=== PATIENT | male | born 1950 | race Caucasian/White ===

== ENCOUNTER 2023-03-12 16:59 | Inpatient (IN) | payer MEDICARE, BC ==
[~2023-03-12] VITALS: Ht 165.1 cm; Wt 88.0 kg
[2023-03-12] MEDS ORDERED: BLOOD SUGAR DIAGNOSTIC 1 EACH STRIP VI ONE (19:30)
[2023-03-12] MEDS ORDERED: MAG HYDROX/AL HYDROX/SIMETH 30 ML LIQUID UDC PO PRN (19:30)
[2023-03-12] MEDS ORDERED: MAGNESIUM HYDROXIDE 30 ML LIQUID UDC PO PRN (19:30)
[2023-03-12] MEDS ORDERED: ACETAMINOPHEN 325 MG TABLET PO PRN (19:30)
[2023-03-12 19:55] VITALS: BP 141/75; TEMP 97.5; O2SAT 98
[2023-03-12] MEDS: LORAZEPAM 1 MG TABLET PO PRN (20:00)
[2023-03-12] MEDS ORDERED: DONE10TA44 PO (20:06)
[2023-03-12] MEDS ORDERED: TRAZ-182 PO (20:06)
[2023-03-12] MEDS ORDERED: QUET50TA PO (20:06)
[2023-03-12] MEDS ORDERED: SERT25TA PO (20:06)
[2023-03-12] MEDS ORDERED: LAMO100T17 PO (20:06)
[2023-03-12] MEDS: ZOLPIDEM 5 MG TABLET PO PRN (21:25)
[2023-03-13] MEDS: LORAZEPAM 1 MG TABLET PO PRN ×2 (00:51→19:34)
[2023-03-13 07:42] VITALS: BP 127/65; TEMP 98.2; O2SAT 98
[2023-03-13 08:05] LABS: BASOPHILS % (AUTO) 0.6 % (0.0-2.0); EOSINOPHILS % (AUTO) 0.9 % (0.0-7.0); HEMATOCRIT 44.2 % (36.7-47.1); HEMOGLOBIN 14.4 g/dL (12.5-16.3); LYMPHOCYTES # (AUTO) 0.9 K/uL (0.8-4.8); LYMPHOCYTES % (AUTO) 17.4 % (20.5-51.5); MEAN CORPUSCULAR HEMOGLOBIN 29.6 uug (23.8-33.4); MEAN CORPUSCULAR HGB CONC 33 g/dL (32.5-36.3); MEAN CORPUSCULAR VOLUME 90.8 fL (73.0-96.2); MONOCYTES # (AUTO) 0.5 K/uL (0.1-1.30); MONOCYTES % (AUTO) 10.1 % (0.0-11.0); NEUTROPHILS # (AUTO) 3.7 K/uL (1.8-8.9); PLATELET COUNT (AUTO) 243 K/uL (152-348); RED BLOOD CELL COUNT(AUTO) 4.87 MIL/uL (4.06-5.63); RED CELL DISTRIBUTION WIDTH 13.5 % (12.1-16.2); WHITE BLOOD COUNT (AUTO) 5.2 K/uL (3.6-10.2)
[2023-03-13 08:25] LABS: DIFFERENTIAL COMMENT 1
[2023-03-13 08:38] LABS: THYROID STIMULATING HORMONE 1.547 mIU/mL (0.358-3.740)
[2023-03-13 09:12] LABS: ALANINE AMINOTRANSFERASE 24 U/L (16-63); ALBUMIN 3.9 g/dL (3.4-5.0); ALKALINE PHOSPHATASE 59 U/L (50-136); ASPARTATE AMINOTRANSFERASE 17 U/L (15-37); BILIRUBIN,TOTAL 1.3 mg/dL (0.2-1.0); CALCIUM 8.7 mg/dL (8.5-10.1); CARBON DIOXIDE 31 mmol/L (21-32); CHLORIDE 106 mmol/L (98-107); CREATININE 0.8 mg/dL (0.6-1.3); GLUCOSE 99 mg/dL (74-106); GLUCOSE FASTING 99 mg/dL (70-115); MAGNESIUM 2.4 mg/dL (1.8-2.4); PHOSPHOROUS 3.8 mg/dL (2.5-4.9); POTASSIUM 3.9 mmol/L (3.5-5.1); SODIUM SERUM 144 mmol/L (136-145); TOTAL PROTEIN, SERUM 7.1 g/dL (6.4-8.2); UREA NITROGEN, BLOOD 18 mg/dL (7-18)
[2023-03-13] MEDS: DIVALPROEX SPRINKLE 125 MG CAP.SPRINK PO SCH ×2 (09:43→20:20)
[2023-03-13 15:15] VITALS: BP 109/55; TEMP 98; O2SAT 98
[2023-03-13 20:00] VITALS: BP 140/60; TEMP 97.8; O2SAT 100
[2023-03-13] MEDS ORDERED: QUETIAPINE FUMARATE 25 MG TABLET PO SCH (21:00)
[2023-03-13] MEDS: ZOLPIDEM 5 MG TABLET PO PRN (21:46)
[2023-03-13] MEDS ORDERED: OLANZAPINE 10 MG VIAL IM ONE (22:30)
[2023-03-14] MEDS: LORAZEPAM 1 MG TABLET PO PRN ×3 (03:24→21:24)
[2023-03-14 08:00] VITALS: BP 156/74; TEMP 98.8; O2SAT 98
[2023-03-14] MEDS: DIVALPROEX SPRINKLE 125 MG CAP.SPRINK PO SCH ×2 (09:17→09:25)
[2023-03-14] MEDS: QUETIAPINE FUMARATE 25 MG TABLET PO SCH ×3 (09:17→17:33)
[2023-03-14 20:06] VITALS: BP 120/62; TEMP 98.2; O2SAT 98
[2023-03-14] MEDS ORDERED: QUETIAPINE FUMARATE 25 MG TABLET PO SCH (21:00)
[2023-03-14] MEDS: QUETIAPINE FUMARATE 100 MG TABLET PO SCH (21:19)
[2023-03-14] MEDS: ZOLPIDEM 5 MG TABLET PO PRN ×2 (23:33→23:35)
[2023-03-15 08:00] VITALS: BP 144/69; TEMP 97.6; O2SAT 100
[2023-03-15] MEDS: DIVALPROEX SPRINKLE 125 MG CAP.SPRINK PO SCH ×2 (09:17→20:19)
[2023-03-15] MEDS: QUETIAPINE FUMARATE 25 MG TABLET PO SCH (09:18)
[2023-03-15 15:30] VITALS: BP 116/59; TEMP 98.2; O2SAT 99
[2023-03-15 20:04] VITALS: BP 124/72; TEMP 98; O2SAT 99
[2023-03-15] MEDS: QUETIAPINE FUMARATE 100 MG TABLET PO SCH (20:19)
[2023-03-15] MEDS: LORAZEPAM 1 MG TABLET PO PRN (21:54)
[2023-03-16 08:19] VITALS: BP 121/54; TEMP 98.5; O2SAT 98
[2023-03-16] MEDS: DIVALPROEX SPRINKLE 125 MG CAP.SPRINK PO SCH ×2 (08:23→20:38)
[2023-03-16] MEDS: QUETIAPINE FUMARATE 25 MG TABLET PO SCH ×2 (08:23→16:58)
[2023-03-16] MEDS ORDERED: CYANOCOBALAMIN 1000 MCG/ML VIAL IM ONE (12:00)
[2023-03-16 16:08] VITALS: BP 129/66; TEMP 98.1; O2SAT 98
[2023-03-16 20:11] VITALS: BP 113/61; TEMP 98.2; O2SAT 100
[2023-03-16] MEDS: QUETIAPINE FUMARATE 100 MG TABLET PO SCH (20:38)
[2023-03-17 08:07] VITALS: BP 126/54; TEMP 98; O2SAT 98
[2023-03-17] MEDS: QUETIAPINE FUMARATE 25 MG TABLET PO SCH ×2 (08:53→17:06)
[2023-03-17] MEDS: DIVALPROEX SPRINKLE 125 MG CAP.SPRINK PO SCH ×2 (08:53→20:07)
[2023-03-17 16:15] VITALS: BP 112/54; TEMP 98; O2SAT 98
[2023-03-17 19:42] VITALS: BP 130/56; TEMP 98; O2SAT 98
[2023-03-17] MEDS: QUETIAPINE FUMARATE 100 MG TABLET PO SCH (20:07)
[2023-03-17] MEDS: LORAZEPAM 1 MG TABLET PO PRN (23:55)
[2023-03-18 07:39] VITALS: BP 144/61; TEMP 98.1; O2SAT 98
[2023-03-18] MEDS: DIVALPROEX SPRINKLE 125 MG CAP.SPRINK PO SCH ×2 (08:30→21:16)
[2023-03-18] MEDS: QUETIAPINE FUMARATE 25 MG TABLET PO SCH ×3 (08:30→17:00)
[2023-03-18 16:11] VITALS: BP 129/52; TEMP 98; O2SAT 98
[2023-03-18 19:43] VITALS: BP 127/62; TEMP 97.2; O2SAT 97
[2023-03-18] MEDS: QUETIAPINE FUMARATE 100 MG TABLET PO SCH (21:16)
[2023-03-19 07:46] VITALS: BP 132/69; TEMP 98.2; O2SAT 98
[2023-03-19] MEDS: DIVALPROEX SPRINKLE 125 MG CAP.SPRINK PO SCH ×2 (08:53→20:30)
[2023-03-19] MEDS: QUETIAPINE FUMARATE 25 MG TABLET PO SCH ×3 (08:54→17:02)
[2023-03-19 15:25] VITALS: BP 130/68; TEMP 98.2; O2SAT 98
[2023-03-19 19:49] VITALS: BP 136/64; TEMP 98.2; O2SAT 98
[2023-03-19] MEDS: QUETIAPINE FUMARATE 100 MG TABLET PO SCH (20:30)
[2023-03-19] MEDS: LORAZEPAM 1 MG TABLET PO PRN (21:41)
[2023-03-19] MEDS: ZOLPIDEM 5 MG TABLET PO PRN (23:26)
[2023-03-20 07:36] VITALS: BP 113/62; TEMP 98.4; O2SAT 99
[2023-03-20] MEDS: DIVALPROEX SPRINKLE 125 MG CAP.SPRINK PO SCH ×2 (08:54→20:57)
[2023-03-20] MEDS: QUETIAPINE FUMARATE 25 MG TABLET PO SCH ×3 (08:54→17:06)
[2023-03-20 15:02] VITALS: BP 108/60; TEMP 98.6; O2SAT 99
[2023-03-20 19:38] VITALS: BP 116/64; TEMP 98.4; O2SAT 98
[2023-03-20] MEDS ORDERED: QUETIAPINE FUMARATE 100 MG TABLET PO SCH (21:00)
[2023-03-20] MEDS: MELATONIN 3 MG TABLET PO SCH (21:00)
[2023-03-20] MEDS: LORAZEPAM 1 MG TABLET PO PRN (22:07)
[2023-03-21] MEDS: ZOLPIDEM 5 MG TABLET PO PRN ×2 (01:32→23:50)
[2023-03-21 07:56] VITALS: BP 120/70; TEMP 98; O2SAT 99
[2023-03-21] MEDS: risperiDONE 1 MG TABLET PO SCH ×3 (09:29→17:07)
[2023-03-21] MEDS: DIVALPROEX SPRINKLE 125 MG CAP.SPRINK PO SCH ×2 (09:30→20:32)
[2023-03-21] MEDS ORDERED: OLANZAPINE 10 MG VIAL IM ONE (10:00)
[2023-03-21 15:02] VITALS: BP 129/53; TEMP 98; O2SAT 100
[2023-03-21 19:58] VITALS: BP 118/56; TEMP 98.2; O2SAT 99
[2023-03-21] MEDS: MELATONIN 3 MG TABLET PO SCH (20:32)
[2023-03-21] MEDS ORDERED: TRAZODONE 50 MG TABLET PO SCH (21:00)
[2023-03-21] MEDS: LORAZEPAM 1 MG TABLET PO PRN (22:39)
[2023-03-22] MEDS: LORAZEPAM 1 MG TABLET PO PRN ×3 (02:44→23:10)
[2023-03-22 07:58] VITALS: BP 144/67; TEMP 98; O2SAT 98
[2023-03-22] MEDS ORDERED: risperiDONE 1 MG TABLET PO SCH (09:00)
[2023-03-22] MEDS: risperiDONE 2 MG TABLET PO SCH ×3 (09:09→16:25)
[2023-03-22] MEDS: DIVALPROEX SPRINKLE 125 MG CAP.SPRINK PO SCH ×2 (09:09→20:18)
[2023-03-22 15:17] VITALS: BP 119/77; TEMP 98.2; O2SAT 98
[2023-03-22 19:48] VITALS: BP 150/79; TEMP 98; O2SAT 96
[2023-03-22] MEDS: MELATONIN 3 MG TABLET PO SCH (20:18)
[2023-03-22] MEDS: TRAZODONE 100 MG TABLET PO SCH (20:18)
[2023-03-22] MEDS ORDERED: TRAZODONE 50 MG TABLET PO SCH (21:00)
[2023-03-22] MEDS: ZOLPIDEM 5 MG TABLET PO PRN (21:34)
[2023-03-23] MEDS: risperiDONE 2 MG TABLET PO SCH ×3 (08:41→16:04)
[2023-03-23] MEDS: DIVALPROEX SPRINKLE 125 MG CAP.SPRINK PO SCH ×2 (08:41→20:24)
[2023-03-23 20:00] VITALS: BP 114/63; TEMP 97; O2SAT 100
[2023-03-23] MEDS: TRAZODONE 100 MG TABLET PO SCH (20:22)
[2023-03-23] MEDS: MELATONIN 3 MG TABLET PO SCH (20:23)
[2023-03-23] MEDS: ZOLPIDEM 5 MG TABLET PO PRN (21:37)
[2023-03-24] MEDS: DIVALPROEX SPRINKLE 125 MG CAP.SPRINK PO SCH ×2 (08:37→20:43)
[2023-03-24] MEDS: risperiDONE 2 MG TABLET PO SCH ×3 (08:37→17:17)
[2023-03-24 16:15] VITALS: BP 122/68; TEMP 98.2; O2SAT 98
[2023-03-24 19:48] VITALS: BP 126/60; TEMP 98.1; O2SAT 98
[2023-03-24] MEDS: MELATONIN 3 MG TABLET PO SCH (20:43)
[2023-03-24] MEDS: TRAZODONE 100 MG TABLET PO SCH (20:43)
[2023-03-24] MEDS: ZOLPIDEM 5 MG TABLET PO PRN (23:57)
[2023-03-25] MEDS: LORAZEPAM 1 MG TABLET PO PRN (02:00)
[2023-03-25] MEDS ORDERED: TEMAZEPAM 15 MG CAPSULE PO PRN (08:00)
[2023-03-25] MEDS: risperiDONE 2 MG TABLET PO SCH ×3 (08:38→16:38)
[2023-03-25] MEDS: DIVALPROEX SPRINKLE 125 MG CAP.SPRINK PO SCH ×2 (08:38→20:49)
[2023-03-25] MEDS: LITHIUM CARBONATE 300 MG CAPSULE PO SCH ×2 (09:21→20:49)
[2023-03-25 16:03] VITALS: BP 131/67; TEMP 98.1; O2SAT 99
[2023-03-25 19:39] VITALS: BP 128/68; TEMP 98.2; O2SAT 96
[2023-03-25] MEDS: TRAZODONE 100 MG TABLET PO SCH (20:49)
[2023-03-25] MEDS: MELATONIN 3 MG TABLET PO SCH (20:50)
[2023-03-26 08:01] VITALS: BP 129/59; TEMP 97.8; O2SAT 98
[2023-03-26] MEDS: risperiDONE 2 MG TABLET PO SCH ×3 (09:00→17:51)
[2023-03-26] MEDS: DIVALPROEX SPRINKLE 125 MG CAP.SPRINK PO SCH ×2 (09:00→20:36)
[2023-03-26] MEDS: LITHIUM CARBONATE 300 MG CAPSULE PO SCH ×2 (09:00→20:36)
[2023-03-26 15:19] VITALS: BP 97/57; TEMP 98; O2SAT 99
[2023-03-26 20:10] VITALS: BP 119/61; TEMP 98.1; O2SAT 100
[2023-03-26] MEDS: TRAZODONE 100 MG TABLET PO SCH (20:36)
[2023-03-26] MEDS: MELATONIN 3 MG TABLET PO SCH (20:44)
[2023-03-27] MEDS: LORAZEPAM 1 MG TABLET PO PRN ×2 (01:41→11:37)
[2023-03-27 07:30] VITALS: BP 118/42; TEMP 97.6; O2SAT 97
[2023-03-27] MEDS: LITHIUM CARBONATE 300 MG CAPSULE PO SCH ×2 (09:10→20:57)
[2023-03-27] MEDS: risperiDONE 2 MG TABLET PO SCH ×3 (09:10→16:38)
[2023-03-27] MEDS: DIVALPROEX SPRINKLE 125 MG CAP.SPRINK PO SCH ×2 (09:10→20:57)
[2023-03-27 15:44] VITALS: BP 130/66; TEMP 97.3; O2SAT 100
[2023-03-27] MEDS: MELATONIN 3 MG TABLET PO SCH (20:58)
[2023-03-27] MEDS ORDERED: TRAZODONE 100 MG TABLET PO SCH (21:00)
[2023-03-27 22:10] VITALS: BP 139/52; TEMP 98
[2023-03-28 08:02] VITALS: BP 120/62; TEMP 98.2; O2SAT 98
[2023-03-28] MEDS: LITHIUM CARBONATE 300 MG CAPSULE PO SCH (08:59)
[2023-03-28] MEDS: risperiDONE 2 MG TABLET PO SCH (08:59)
[2023-03-28] MEDS: DIVALPROEX SPRINKLE 125 MG CAP.SPRINK PO SCH (08:59)
[2023-03-28] MEDS ORDERED: CYANOCOBALAMIN 1000 MCG/ML VIAL IM SCH (09:00)
== END 2023-03-28 11:30 | DRG 885 ==
LOC: TRANSITION 16:59 → GPS 18:40
PROVIDERS: ADMIT Psychiatry & Neurology Psychiatry; ATTEND Nurse Practitioner Acute Care
DX: F29 Unspecified psychosis not due to a substance or known physiological condition (principal); G93.41 Metabolic encephalopathy; F02.818 Dementia in other diseases classified elsewhere, unspecified severity, with other behavioral disturbance; G30.9 Alzheimer's disease, unspecified; E66.9 Obesity, unspecified; Z68.32 Body mass index [BMI] 32.0-32.9, adult; Z20.822 Contact with and (suspected) exposure to COVID-19; Z73.6 Limitation of activities due to disability; Z79.899 Other long term (current) drug therapy
CPT/HCPCS: 36415; 71045; 80164; 83735; 84100; 84443; 85025; J2358; J3420

== ENCOUNTER 2023-06-03 18:20 | Inpatient (IN) | payer MEDICARE, BC ==
[~2023-06-03] VITALS: Ht 185.4 cm; Wt 72.6 kg
[~2023-06-03 18:20] MED LIST: DONE10TA44 PO
[2023-06-03] MEDS ORDERED: RISP0.5T5 PO (18:37)
[2023-06-03] MEDS ORDERED: DIVA125C5 PO (18:37)
[2023-06-03] MEDS ORDERED: LITH300C2 PO (18:37)
[2023-06-03 19:13] LABS: BASOPHILS # (AUTO) 0.1 K/UL (0.0-0.2); BASOPHILS % (AUTO) 2.1 % (0.0-2.0); EOSINOPHILS # (AUTO) 0.1 K/uL (0.0-0.7); EOSINOPHILS % (AUTO) 1.2 % (0.0-7.0); HEMATOCRIT 42.2 % (36.7-47.1); HEMOGLOBIN 14.1 g/dL (12.5-16.3); LYMPHOCYTES # (AUTO) 1.1 K/uL (0.8-4.8); LYMPHOCYTES % (AUTO) 18.9 % (20.5-51.5); MEAN CORPUSCULAR HGB CONC 34 g/dL (32.5-36.3); MEAN CORPUSCULAR VOLUME 92.4 fL (73.0-96.2); MONOCYTES # (AUTO) 0.6 K/uL (0.1-1.30); MONOCYTES % (AUTO) 9.9 % (0.0-11.0); NEUTROPHILS # (AUTO) 3.8 K/uL (1.8-8.9); NEUTROPHILS % (AUTO) 67.9 % (38.5-71.5); PLATELET COUNT (AUTO) 191 K/uL (152-348); RED BLOOD CELL COUNT(AUTO) 4.56 MIL/uL (4.06-5.63); RED CELL DISTRIBUTION WIDTH 14.4 % (12.1-16.2); WHITE BLOOD COUNT (AUTO) 5.6 K/uL (3.6-10.2)
[2023-06-03 19:17] LABS: DIFFERENTIAL COMMENT 1
[2023-06-03 19:19] LABS: CALCIUM 9.3 mg/dL (8.5-10.1); CREATININE 0.9 mg/dL (0.6-1.3); POTASSIUM 3.3 mmol/L (3.5-5.1)
[2023-06-03] MEDS ORDERED: HALOPERIDOL LACTATE 5 MG/1 ML VIAL ONE (19:20)
[2023-06-03 19:24] LABS: ALBUMIN 3.8 g/dL (3.4-5.0); BILIRUBIN,DIRECT 0.3 mg/dL (0.0-0.2); BILIRUBIN,TOTAL 1.4 mg/dL (0.2-1.0); TOTAL PROTEIN, SERUM 7.2 g/dL (6.4-8.2)
[2023-06-03] MEDS ORDERED: HALOPERIDOL LACTATE 5 MG/1 ML VIAL IM ONE (19:30)
[2023-06-03] MEDS ORDERED: LORAZEPAM 2 MG/1 ML VIAL IV ONE (20:00)
[2023-06-03] MEDS ORDERED: LORAZEPAM 2 MG/1 ML VIAL ONE (20:23)
[2023-06-04] MEDS ORDERED: MAG HYDROX/AL HYDROX/SIMETH 30 ML LIQUID UDC PO PRN (01:30)
[2023-06-04] MEDS ORDERED: MAGNESIUM HYDROXIDE 30 ML LIQUID UDC PO PRN (01:30)
[2023-06-04] MEDS ORDERED: BLOOD SUGAR DIAGNOSTIC 1 EACH STRIP VI ONE (01:30)
[2023-06-04 02:17] VITALS: BP 128/52; TEMP 98.1; O2SAT 98
[2023-06-04] MEDS: LORAZEPAM 1 MG TABLET PO PRN ×2 (08:38→18:24)
[2023-06-04] MEDS ORDERED: DIVALPROEX ER 250 MG TAB.SR.24H PO SCH (09:00)
[2023-06-04] MEDS: risperiDONE 0.5 MG TABLET PO SCH ×3 (09:17→16:33)
[2023-06-04] MEDS: LITHIUM CARBONATE 150 MG CAPSULE PO SCH ×2 (09:17→16:33)
[2023-06-04 09:40] VITALS: BP 122/52; TEMP 98; O2SAT 98
[2023-06-04 15:32] VITALS: BP 113/72; TEMP 98; O2SAT 98
[2023-06-04 19:40] VITALS: BP 105/72; TEMP 98.2; O2SAT 95
[2023-06-04] MEDS: MELATONIN 3 MG TABLET PO SCH (20:47)
[2023-06-04] MEDS ORDERED: DIVALPROEX ER 500 MG TAB.SR.24H PO SCH (21:00)
[2023-06-05 07:45] VITALS: BP 159/69; TEMP 98.2; O2SAT 98
[2023-06-05 07:45] LABS: BASOPHILS % (AUTO) 0.6 % (0.0-2.0); EOSINOPHILS # (AUTO) 0.1 K/uL (0.0-0.7); HEMATOCRIT 44.2 % (36.7-47.1); HEMOGLOBIN 14.7 g/dL (12.5-16.3); LYMPHOCYTES % (AUTO) 17.6 % (20.5-51.5); MEAN CORPUSCULAR HEMOGLOBIN 31.1 uug (23.8-33.4); MEAN CORPUSCULAR HGB CONC 33 g/dL (32.5-36.3); MONOCYTES # (AUTO) 0.5 K/uL (0.1-1.30); MONOCYTES % (AUTO) 9.4 % (0.0-11.0); NEUTROPHILS # (AUTO) 3.9 K/uL (1.8-8.9); NEUTROPHILS % (AUTO) 70.4 % (38.5-71.5); PLATELET COUNT (AUTO) 182 K/uL (152-348); RED BLOOD CELL COUNT(AUTO) 4.75 MIL/uL (4.06-5.63); RED CELL DISTRIBUTION WIDTH 14.3 % (12.1-16.2); WHITE BLOOD COUNT (AUTO) 5.5 K/uL (3.6-10.2)
[2023-06-05 07:46] LABS: DIFFERENTIAL COMMENT 1
[2023-06-05 08:23] LABS: THYROID STIMULATING HORMONE 2.856 mIU/mL (0.358-3.740)
[2023-06-05 08:34] LABS: ALBUMIN 3.5 g/dL (3.4-5.0); BILIRUBIN,TOTAL 1.4 mg/dL (0.2-1.0); CALCIUM 9.3 mg/dL (8.5-10.1); MAGNESIUM 2.8 mg/dL (1.8-2.4); PHOSPHOROUS 4.4 mg/dL (2.5-4.9); TOTAL PROTEIN, SERUM 6.7 g/dL (6.4-8.2)
[2023-06-05] MEDS: DIVALPROEX SPRINKLE 125 MG CAP.SPRINK PO SCH ×2 (09:06→20:40)
[2023-06-05] MEDS: risperiDONE 0.5 MG TABLET PO SCH ×3 (09:06→16:47)
[2023-06-05] MEDS: LITHIUM CARBONATE 150 MG CAPSULE PO SCH ×2 (09:06→16:47)
[2023-06-05] MEDS: LORAZEPAM 1 MG TABLET PO PRN ×2 (10:42→19:43)
[2023-06-05 15:24] VITALS: BP 99/53; TEMP 98; O2SAT 98
[2023-06-05 20:00] VITALS: BP 124/87; TEMP 98.5; O2SAT 99
[2023-06-05] MEDS: MELATONIN 3 MG TABLET PO SCH (20:40)
[2023-06-06] MEDS: LORAZEPAM 1 MG TABLET PO PRN ×2 (07:58→18:04)
[2023-06-06 08:00] VITALS: BP 121/56; TEMP 97.6; O2SAT 97
[2023-06-06 08:05] VITALS: BP 121/56; TEMP 97.6; O2SAT 97
[2023-06-06] MEDS: LITHIUM CARBONATE 150 MG CAPSULE PO SCH ×2 (08:50→16:50)
[2023-06-06] MEDS: DIVALPROEX SPRINKLE 125 MG CAP.SPRINK PO SCH ×2 (08:50→20:21)
[2023-06-06] MEDS: risperiDONE 0.5 MG TABLET PO SCH ×3 (08:50→16:50)
[2023-06-06] MEDS ORDERED: OLANZAPINE 10 MG VIAL IM ONE (09:30)
[2023-06-06 15:57] VITALS: BP 108/69; TEMP 97.2; O2SAT 97
[2023-06-06] MEDS: ENSURE ENLIVE (VAN) 240 ML LIQUID PO SCH (17:38)
[2023-06-06 19:56] VITALS: BP 117/75; TEMP 97.8; O2SAT 100
[2023-06-06] MEDS: MELATONIN 3 MG TABLET PO SCH (20:21)
[2023-06-06] MEDS: REMEDY ESSENTIAL ZINC PASTE 113 GM TOP SCH (20:22)
[2023-06-06] MEDS: ZOLPIDEM 5 MG TABLET PO PRN (22:37)
[2023-06-07 08:03] VITALS: BP 136/69; TEMP 98.2; O2SAT 98
[2023-06-07] MEDS ORDERED: ENSURE ENLIVE (VAN) 240 ML LIQUID PO SCH (09:00)
[2023-06-07] MEDS: risperiDONE 0.5 MG TABLET PO SCH ×3 (09:30→17:01)
[2023-06-07] MEDS: LORAZEPAM 1 MG TABLET PO PRN ×2 (09:50→18:42)
[2023-06-07] MEDS: ACETAMINOPHEN 325 MG TABLET PO PRN (13:18)
[2023-06-07] MEDS: REMEDY ESSENTIAL ZINC PASTE 113 GM TOP SCH ×2 (13:19→21:03)
[2023-06-07] MEDS: ENSURE ENLIVE (VAN) 240 ML LIQUID PO SCH ×2 (13:20→17:02)
[2023-06-07 16:20] VITALS: BP 139/76; TEMP 98.2; O2SAT 98
[2023-06-07] MEDS: LITHIUM CARBONATE 150 MG CAPSULE PO SCH (17:01)
[2023-06-07] MEDS: DIVALPROEX SPRINKLE 125 MG CAP.SPRINK PO SCH (20:56)
[2023-06-07] MEDS: MELATONIN 3 MG TABLET PO SCH (20:57)
[2023-06-07] MEDS: ZOLPIDEM 5 MG TABLET PO PRN (23:25)
[2023-06-08] MEDS: LORAZEPAM 1 MG TABLET PO PRN ×3 (06:04→19:59)
[2023-06-08 08:14] VITALS: BP 113/57; TEMP 98.3; O2SAT 99
[2023-06-08] MEDS: DIVALPROEX SPRINKLE 125 MG CAP.SPRINK PO SCH ×2 (08:28→20:00)
[2023-06-08] MEDS: REMEDY ESSENTIAL ZINC PASTE 113 GM TOP SCH ×2 (08:28→21:08)
[2023-06-08] MEDS: ENSURE ENLIVE (VAN) 240 ML LIQUID PO SCH ×2 (08:29→18:07)
[2023-06-08] MEDS: risperiDONE 0.5 MG TABLET PO SCH ×3 (08:29→18:07)
[2023-06-08] MEDS: LITHIUM CARBONATE 150 MG CAPSULE PO SCH ×2 (08:29→18:07)
[2023-06-08 16:17] VITALS: BP 116/99; TEMP 98; O2SAT 97
[2023-06-08 20:42] VITALS: BP 138/70; TEMP 98.2; O2SAT 96
[2023-06-08] MEDS: MELATONIN 3 MG TABLET PO SCH (21:07)
[2023-06-09] MEDS: ZOLPIDEM 5 MG TABLET PO PRN (00:34)
[2023-06-09] MEDS: LORAZEPAM 1 MG TABLET PO PRN (03:15)
[2023-06-09] MEDS: LITHIUM CARBONATE 150 MG CAPSULE PO SCH ×2 (08:41→17:04)
[2023-06-09] MEDS: ASPIRIN 81 MG TAB.CHEW PO SCH (08:41)
[2023-06-09] MEDS: risperiDONE 0.5 MG TABLET PO SCH ×3 (08:42→17:04)
[2023-06-09] MEDS: DIVALPROEX SPRINKLE 125 MG CAP.SPRINK PO SCH ×2 (08:42→20:29)
[2023-06-09] MEDS: REMEDY ESSENTIAL ZINC PASTE 113 GM TOP SCH ×2 (08:43→20:30)
[2023-06-09] MEDS: ENSURE ENLIVE (VAN) 240 ML LIQUID PO SCH ×2 (08:44→17:05)
[2023-06-09 08:51] VITALS: BP 126/61; TEMP 98; O2SAT 96
[2023-06-09 16:25] VITALS: BP 135/78; TEMP 98; O2SAT 97
[2023-06-09] MEDS: MELATONIN 3 MG TABLET PO SCH (20:30)
[2023-06-09 20:34] VITALS: BP 131/71; TEMP 98; O2SAT 98
[2023-06-10] MEDS: LORAZEPAM 1 MG TABLET PO PRN ×3 (05:11→19:52)
[2023-06-10] MEDS: ASPIRIN 81 MG TAB.CHEW PO SCH (08:37)
[2023-06-10] MEDS: LITHIUM CARBONATE 150 MG CAPSULE PO SCH ×2 (08:38→17:02)
[2023-06-10] MEDS: ENSURE ENLIVE (VAN) 240 ML LIQUID PO SCH ×2 (08:39→17:03)
[2023-06-10] MEDS: DIVALPROEX SPRINKLE 125 MG CAP.SPRINK PO SCH ×2 (08:39→21:01)
[2023-06-10 08:42] VITALS: BP 110/83; TEMP 98; O2SAT 97
[2023-06-10] MEDS: REMEDY ESSENTIAL ZINC PASTE 113 GM TOP SCH ×2 (08:48→20:38)
[2023-06-10] MEDS: risperiDONE 1 MG TABLET PO SCH ×2 (08:50→17:02)
[2023-06-10] MEDS ORDERED: risperiDONE 0.5 MG TABLET PO SCH (09:00)
[2023-06-10 16:23] VITALS: BP 123/83; TEMP 97.9; O2SAT 97
[2023-06-10 20:00] VITALS: BP 109/77; TEMP 98.1; O2SAT 98
[2023-06-10] MEDS: MELATONIN 3 MG TABLET PO SCH (21:39)
[2023-06-11 07:30] VITALS: BP 142/80; TEMP 98; O2SAT 99
[2023-06-11] MEDS: ASPIRIN 81 MG TAB.CHEW PO SCH (08:04)
[2023-06-11] MEDS: ENSURE ENLIVE (VAN) 240 ML LIQUID PO SCH ×2 (08:05→13:30)
[2023-06-11] MEDS: risperiDONE 1 MG TABLET PO SCH ×2 (08:05→16:06)
[2023-06-11] MEDS: LORAZEPAM 1 MG TABLET PO PRN ×3 (08:05→19:53)
[2023-06-11] MEDS: LITHIUM CARBONATE 150 MG CAPSULE PO SCH ×2 (08:05→16:06)
[2023-06-11] MEDS: DIVALPROEX SPRINKLE 125 MG CAP.SPRINK PO SCH ×2 (08:05→19:53)
[2023-06-11] MEDS: REMEDY ESSENTIAL ZINC PASTE 113 GM TOP SCH ×2 (08:06→21:41)
[2023-06-11 15:31] VITALS: BP 159/84; TEMP 98; O2SAT 99
[2023-06-11 20:00] VITALS: BP 132/72; TEMP 98; O2SAT 100
[2023-06-11] MEDS: MELATONIN 3 MG TABLET PO SCH (21:39)
[2023-06-11] MEDS: ZOLPIDEM 5 MG TABLET PO PRN (21:40)
[2023-06-12 08:15] VITALS: BP 100/73; TEMP 98; O2SAT 96
[2023-06-12] MEDS: ASPIRIN 81 MG TAB.CHEW PO SCH (08:37)
[2023-06-12] MEDS: LITHIUM CARBONATE 150 MG CAPSULE PO SCH ×2 (08:37→17:16)
[2023-06-12] MEDS: DIVALPROEX SPRINKLE 125 MG CAP.SPRINK PO SCH ×2 (08:37→19:53)
[2023-06-12] MEDS: risperiDONE 1 MG TABLET PO SCH ×2 (08:37→17:15)
[2023-06-12] MEDS: REMEDY ESSENTIAL ZINC PASTE 113 GM TOP SCH ×2 (08:38→20:11)
[2023-06-12] MEDS: ENSURE ENLIVE (VAN) 240 ML LIQUID PO SCH (08:38)
[2023-06-12] MEDS: LORAZEPAM 1 MG TABLET PO PRN ×2 (12:36→19:52)
[2023-06-12 15:44] VITALS: BP 156/75; TEMP 98; O2SAT 96
[2023-06-12 20:05] VITALS: BP 140/74; TEMP 98.2; O2SAT 99
[2023-06-12] MEDS: MELATONIN 3 MG TABLET PO SCH (21:44)
[2023-06-12] MEDS: ZOLPIDEM 5 MG TABLET PO PRN (22:36)
[2023-06-13] MEDS: LORAZEPAM 1 MG TABLET PO PRN ×3 (03:57→20:22)
[2023-06-13 07:59] VITALS: BP 133/66; TEMP 97.2; O2SAT 97
[2023-06-13 08:01] VITALS: BP 100/41; TEMP 97.6; O2SAT 97
[2023-06-13] MEDS: risperiDONE 1 MG TABLET PO SCH ×2 (11:53→17:17)
[2023-06-13] MEDS: ASPIRIN 81 MG TAB.CHEW PO SCH (11:53)
[2023-06-13] MEDS: DIVALPROEX SPRINKLE 125 MG CAP.SPRINK PO SCH ×2 (11:54→20:23)
[2023-06-13] MEDS: LITHIUM CARBONATE 150 MG CAPSULE PO SCH ×2 (11:54→17:17)
[2023-06-13] MEDS: ENSURE ENLIVE (VAN) 240 ML LIQUID PO SCH (11:55)
[2023-06-13] MEDS: REMEDY ESSENTIAL ZINC PASTE 113 GM TOP SCH ×2 (11:55→20:24)
[2023-06-13] MEDS ORDERED: OLANZAPINE 10 MG VIAL IM ONE (15:00)
[2023-06-13 15:15] VITALS: BP 111/51; TEMP 97.9; O2SAT 97
[2023-06-13 15:45] VITALS: BP 113/65; TEMP 97.8; O2SAT 97
[2023-06-13 20:00] VITALS: BP 134/87; TEMP 98; O2SAT 95
[2023-06-13] MEDS: MELATONIN 3 MG TABLET PO SCH (20:23)
[2023-06-14] MEDS: ACETAMINOPHEN 325 MG TABLET PO PRN (06:13)
[2023-06-14] MEDS: LORAZEPAM 1 MG TABLET PO PRN ×2 (06:13→15:40)
[2023-06-14 07:58] VITALS: BP 124/72; TEMP 98.4; O2SAT 98
[2023-06-14] MEDS: LITHIUM CARBONATE 150 MG CAPSULE PO SCH ×3 (09:06→17:26)
[2023-06-14] MEDS: risperiDONE 1 MG TABLET PO SCH ×3 (09:06→17:26)
[2023-06-14] MEDS: ASPIRIN 81 MG TAB.CHEW PO SCH (09:06)
[2023-06-14] MEDS: REMEDY ESSENTIAL ZINC PASTE 113 GM TOP SCH ×2 (09:07→20:40)
[2023-06-14] MEDS: ENSURE ENLIVE (VAN) 240 ML LIQUID PO SCH (09:07)
[2023-06-14] MEDS: DIVALPROEX SPRINKLE 125 MG CAP.SPRINK PO SCH ×2 (09:07→20:37)
[2023-06-14 15:17] VITALS: BP 136/76; TEMP 98; O2SAT 98
[2023-06-14 19:58] VITALS: BP 141/78; TEMP 98; O2SAT 98
[2023-06-14] MEDS: MELATONIN 3 MG TABLET PO SCH (20:36)
[2023-06-15] MEDS: LORAZEPAM 1 MG TABLET PO PRN ×2 (07:12→14:52)
[2023-06-15] MEDS: LITHIUM CARBONATE 150 MG CAPSULE PO SCH ×3 (08:14→17:38)
[2023-06-15] MEDS: DIVALPROEX SPRINKLE 125 MG CAP.SPRINK PO SCH ×2 (08:14→21:41)
[2023-06-15] MEDS: risperiDONE 1 MG TABLET PO SCH ×3 (08:14→17:38)
[2023-06-15] MEDS: ASPIRIN 81 MG TAB.CHEW PO SCH (08:14)
[2023-06-15] MEDS: ENSURE ENLIVE (VAN) 240 ML LIQUID PO SCH (08:15)
[2023-06-15 08:19] VITALS: BP_SYST 101; BP_DIAS 5; BP_DIAS 58; TEMP 97.6; O2SAT 97
[2023-06-15] MEDS: REMEDY ESSENTIAL ZINC PASTE 113 GM TOP SCH ×2 (08:21→21:42)
[2023-06-15 16:06] VITALS: BP 153/73; TEMP 97.6
[2023-06-15 20:09] VITALS: BP 134/63; TEMP 98; O2SAT 96
[2023-06-15] MEDS: MELATONIN 3 MG TABLET PO SCH (21:41)
[2023-06-16] MEDS: ZOLPIDEM 5 MG TABLET PO PRN (01:12)
[2023-06-16] MEDS: LORAZEPAM 1 MG TABLET PO PRN (05:03)
[2023-06-16 07:42] VITALS: BP 105/60; TEMP 97.9; O2SAT 96
[2023-06-16] MEDS: ASPIRIN 81 MG TAB.CHEW PO SCH (08:45)
[2023-06-16] MEDS: LITHIUM CARBONATE 150 MG CAPSULE PO SCH ×3 (08:45→17:08)
[2023-06-16] MEDS: risperiDONE 1 MG TABLET PO SCH ×3 (08:45→17:08)
[2023-06-16] MEDS: ENSURE ENLIVE (VAN) 240 ML LIQUID PO SCH (08:46)
[2023-06-16] MEDS: DIVALPROEX SPRINKLE 125 MG CAP.SPRINK PO SCH ×2 (08:46→21:05)
[2023-06-16] MEDS: REMEDY ESSENTIAL ZINC PASTE 113 GM TOP SCH ×2 (08:47→21:05)
[2023-06-16 16:49] VITALS: BP 141/80; TEMP 97.9; O2SAT 96
[2023-06-16 20:15] VITALS: BP 156/84; TEMP 98; O2SAT 99
[2023-06-16] MEDS: TRAZODONE 50 MG TABLET PO SCH (21:05)
[2023-06-17] MEDS: LORAZEPAM 1 MG TABLET PO PRN ×2 (03:45→20:42)
[2023-06-17 07:55] VITALS: BP 120/53; TEMP 98; O2SAT 96
[2023-06-17] MEDS: LITHIUM CARBONATE 150 MG CAPSULE PO SCH ×3 (08:35→17:18)
[2023-06-17] MEDS: ASPIRIN 81 MG TAB.CHEW PO SCH (08:35)
[2023-06-17] MEDS: risperiDONE 1 MG TABLET PO SCH ×3 (08:35→17:18)
[2023-06-17] MEDS: DIVALPROEX SPRINKLE 125 MG CAP.SPRINK PO SCH ×2 (08:36→20:41)
[2023-06-17] MEDS: ENSURE ENLIVE (VAN) 240 ML LIQUID PO SCH (08:36)
[2023-06-17] MEDS: REMEDY ESSENTIAL ZINC PASTE 113 GM TOP SCH ×2 (08:37→20:43)
[2023-06-17 16:03] VITALS: BP 150/81; TEMP 98; O2SAT 96
[2023-06-17 19:51] VITALS: BP 148/68; TEMP 97.9; O2SAT 96
[2023-06-17] MEDS: TRAZODONE 50 MG TABLET PO SCH (20:42)
[2023-06-18] MEDS: LORAZEPAM 1 MG TABLET PO PRN (06:41)
[2023-06-18] MEDS: ASPIRIN 81 MG TAB.CHEW PO SCH (08:26)
[2023-06-18] MEDS: DIVALPROEX SPRINKLE 125 MG CAP.SPRINK PO SCH (08:26)
[2023-06-18] MEDS: LITHIUM CARBONATE 150 MG CAPSULE PO SCH ×2 (08:27→12:02)
[2023-06-18] MEDS: REMEDY ESSENTIAL ZINC PASTE 113 GM TOP SCH (08:27)
[2023-06-18] MEDS: ENSURE ENLIVE (VAN) 240 ML LIQUID PO SCH (08:27)
[2023-06-18] MEDS: risperiDONE 1 MG TABLET PO SCH ×2 (08:27→12:02)
[2023-06-18 08:29] VITALS: BP 141/61; TEMP 98.2; O2SAT 98
[2023-06-18] MEDS ORDERED: METOPROLOL TARTRATE 25 MG TABLET PO SCH (09:15)
[2023-06-18 09:36] VITALS: BP 141/61
== END 2023-06-18 12:30 | DRG 885 ==
LOC: ER 18:28 → GPS 23:05
PROVIDERS: ADMIT Psychiatry & Neurology Psychiatry; ATTEND Internal Medicine
DX: F29 Unspecified psychosis not due to a substance or known physiological condition (principal); D68.59 Other primary thrombophilia; R17 Unspecified jaundice; F02.811 Dementia in other diseases classified elsewhere, unspecified severity, with agitation; F02.818 Dementia in other diseases classified elsewhere, unspecified severity, with other behavioral disturbance; F31.9 Bipolar disorder, unspecified; E87.6 Hypokalemia; I69.398 Other sequelae of cerebral infarction; G93.89 Other specified disorders of brain; M43.17 Spondylolisthesis, lumbosacral region; M25.78 Osteophyte, vertebrae; M48.061 Spinal stenosis, lumbar region without neurogenic claudication; Z89.512 Acquired absence of left leg below knee; Z74.09 Other reduced mobility; G30.9 Alzheimer's disease, unspecified; I10 Essential (primary) hypertension; E78.5 Hyperlipidemia, unspecified; M19.90 Unspecified osteoarthritis, unspecified site; Z79.82 Long term (current) use of aspirin; R79.89 Other specified abnormal findings of blood chemistry; R00.0 Tachycardia, unspecified
CPT/HCPCS: 36415; 70030-TC; 70450; 71045; 72131; 72170; 80164; 83735; 84100; 84443; 85025; 93005; A6209; J1630; J2060; J2358